=== PATIENT | female | born 1955 | race Caucasian/White ===

== ENCOUNTER 2016-08-09 18:58 | Inpatient (IN) | payer BC ==
--- NOTE | ~2016-08-09 | DS ---
Discharge Summary [facility] [address] [place]. [address] NAME: LISS YI : 57 STATUS : DIS IN PAT#: [id number] AGE: 61 ADM/REG DATE : 08/09/16 MR#: [id number] REPORT SERV DATE: 08/23/16 DICTATED BY: RENEA WELLINGTON DATE: 08/22/16 REPORT STATUS : Draft TRANSCRIBED BY: MODCatrachita DATE: 08/22/16 Data Collection from hospitalization DISCHARGE DIAGNOSES: 1. Small bowel obstruction. 2. Ulcerative colitis. 3. Hypertension. 4. Asthma. 5. Acute kidney injury - resolving. 6. Hypokalemia. CONSULTATIONS: None. PROCEDURES PERFORMED: 1. Laparoscopic extensive adhesiolysis with greater than two hours of adhesiolysis on 08/11/2016. 2. CT scan of the abdomen and pelvis without contrast on 08/09/2016. MEDICATIONS: ProAir two puffs via inhaler as needed, vitamin D 2500 units every morning, estradiol 0.0375 mg topically on and Sundays, Fenesin IR 400 mg every evening, Motrin 800 mg four times a day as needed, Prinivil 2.5 mg every morning, multivitamins with minerals one tablet every evening, Paxil 10 mg every morning, and vitamin E 400 units every morning. CONDITION AT DISCHARGE: Stable. DISPOSITION: The patient was discharged home on a regular diet with activities as instructed. She would follow up with me as instructed. HOSPITAL COURSE: This is a 61-year-old female who presented with a bowel obstruction. A CT scan of the abdomen and pelvis without contrast had been performed. She has had two and a half days of moderate intermittent dull abdominal pain, greater in the left lower quadrant with an episode of vomiting. She has not had a bowel movement in approximately two days. Her typical bowel habit is several bowel movements per day. She does have a history of ulcerative colitis, which is currently managed with diet. She was admitted to the hospital at this time for further evaluation and treatment. Upon admission, creatinine level was 2.22. CT scan findings were consistent with bowel obstruction. She was felt to have acute renal failure and urinary tract infection. IV hydration was started as well as antibiotics. NG tube was placed. It was felt that she may need possible surgical intervention if she fails to improve. The next day, she was resting comfortably. She was still not passing flatus. Abdominal x-ray showed dilated loops of air in the colon. She remained n.p.o. IV fluids were continued. On 08/11/2016, treatment options were discussed and it was elected to proceed with surgical intervention. She was taken to the operating room where she underwent the above-mentioned procedure. She tolerated this well, and there were no complications. On postop day #1, she had no new complaints. She appeared well. The NG tube was going to be removed. Discharge planning was performed. Pain control was appropriate. On 08/13/2016, she was feeling better. She Discharge Summary [facility] [address] [place]. [address] NAME: LISS YI : 57 STATUS : DIS IN PAT#: [id number] AGE: 61 ADM/REG DATE : 08/09/16 MR#: [id number] REPORT SERV DATE: 08/23/16 DICTATED BY: RENEA WELLINGTON DATE: 08/22/16 REPORT STATUS : Draft TRANSCRIBED BY: SUMANTH DATE: 08/22/16 was passing flatus and did have a bowel movement. She had no nausea or vomiting. She was tolerating oral intake. Discharge instructions were given. Due to her improved and stable condition, she was discharged home with the above-stated instruction. Information collected by: Violeta Xie I submit the above information as my discharge summary. KATHLEEN/SUMANTH Sonny Wellington M.D. / [id number] CC: Sonny Wellington M.D.
--- NOTE | ~2016-08-09 | HP ---
History And Physical [place] [id number] [facility] [place]. [address] NAME: LISS YI : 57 STATUS : ADM IN [facility]#: [id number] AGE: 61 ADM/REG DATE : 08/09/16 MR#: [id number] REPORT SERV DATE: 08/09/16 DICTATED BY: RENEA WELLINGTON DATE: 08/09/16 REPORT STATUS : Draft TRANSCRIBED BY: MODL DATE: 08/09/16 DATE OF ADMISSION: 08/09/2016 CHIEF COMPLAINT: Abdominal pain. HISTORY OF PRESENT ILLNESS: The patient presents with a two and half day history of moderate intermittent dull abdominal pain, greatest in the left lower quadrant with an episode of vomiting, and no bowel movement for approximately two days. Her typical bowel habit is several bowel movements a day with a history of ulcerative colitis which currently is managed with diet. Possible contributing factors are previous history of hysterectomy and followed by a small bowel resection and adhesiolysis for bowel obstruction in [address] Pearce. ALLERGIES: SULFA AND EPINEPHRINE. MEDICATIONS: Albuterol, cefuroxime, Calciferol, estradiol, guanfacine, ibuprofen, lisinopril, multivitamins, Paxil, and vitamin E. PAST MEDICAL HISTORY: Her medical illnesses include sinus problems, ulcerative colitis. PREVIOUS SURGERIES: As above. FAMILY HISTORY: Significant for hypertension. SOCIAL HISTORY: Significant for occasional ethanol use but no smoking. REVIEW OF SYSTEMS: A comprehensive review of systems was obtained, and she generally has been in good health, though she does have sinus problems and is on antibiotic at this time for sinus problem and has a mass which she is supposed to have a CT scan for today but did not get that. She denies chest pain or shortness of breath, heart or lung problems. She denies other GI problems other than already mentioned. She denies kidney problems. She denies musculoskeletal problems. She denies endocrine problems, bleeding diathesis, or history of blood clot, and her comprehensive review is otherwise negative according to her. PHYSICAL EXAMINATION: VITAL SIGNS: Blood pressure 145/75, temperature 97.9, respiratory rate 16. GENERAL: She is alert and well appearing. She has mildly dry mucous membranes. No scleral icterus. There is no JVD, thyromegaly, cervical adenopathy, or carotid bruits. There is no use of accessory muscles of breathing. CHEST: Clear. HEART: Regular rhythm and rate without murmurs. ABDOMEN: Soft, with tenderness in left lower quadrant. EXTREMITIES: No cyanosis, clubbing, or edema. SKIN: Has multiple actinic changes. Of note, there is no ventral hernia identified. History And Physical [address] [place]. [address] NAME: LISS YI : 57 STATUS : ADM IN [facility]#: [id number] AGE: 61 ADM/REG DATE : 08/09/16 MR#: [id number] REPORT SERV DATE: 08/09/16 DICTATED BY: RENEA WELLINGTON DATE: 08/09/16 REPORT STATUS : Draft TRANSCRIBED BY: MODL DATE: 08/09/16 LABORATORY DATA: Includes creatinine of 2.22, BUN 26, hemoglobin of 14.4, white count of 8.1. Urinalysis revealed 26 white blood cells. I reviewed the CT scan and findings were consistent with bowel obstruction both on the report and also by my visualization. IMPRESSION: Small bowel obstruction with dehydration and acute renal failure and urinary tract infection. PLAN: Plan will be for IV hydration, antibiotics, nasogastric decompression with possible surgical intervention if she fails to improve. I think she would be best served by rehydrating and resuscitating her prior to surgical intervention and that she does not have an acute abdomen and she appears to be dehydrated and may be able to get through this without surgical intervention. TIFFANIE/SUMANTH Sonny Wellington M.D. / [id number] CC: Sonny Wellington M.D.
--- NOTE | ~2016-08-09 | OP ---
Record Of Operation [facility] [address] [place]. [address] NAME: LISS ALCOCER : 57 STATUS : ADM IN [facility]#: [id number] AGE: 61 ADM/REG DATE : 08/09/16 MR#: [id number] REPORT SERV DATE: 08/11/16 DICTATED BY: RENEA WELLINGTON DATE: 08/11/16 REPORT STATUS : Draft TRANSCRIBED BY: MODL DATE: 08/11/16 DATE OF PROCEDURE: 08/11/2016 PREOPERATIVE DIAGNOSIS: Small bowel obstruction. POSTOPERATIVE DIAGNOSIS: Small bowel obstruction. PROCEDURE: Laparoscopic extensive adhesiolysis with greater than 2 hours of adhesiolysis. SURGEON: Sonny Wellington M.D. RESIDENT: Nenita Velez MD ANESTHESIA: General. ESTIMATED BLOOD LOSS: Less than 30 mL. INDICATION: Ms. Alcocer is a 61-year-old female with bowel obstruction. It failed to resolve with conservative management. Laparoscopic possible open resection was offered to her. The risks including bleeding, leak of the bowel, need for anastomosis, DVT, anesthetic complications, recuperation, possible need for open operation among others were discussed with her and she agreed to proceed. DESCRIPTION OF PROCEDURE: The patient was taken to the operating room and placed in a supine position. General anesthesia was induced. The abdomen was prepped and draped and a small incision was made in the umbilicus. A Charlene technique was utilized to place a 5 mm trocar. There were multiple adhesions and two trocars which were both 5 mm placed on the left and also on the right, and adhesions were taken down from the anterior abdominal cavity and then there were multiple adhesions of the small bowel in the pelvis and it was very difficult because of the nature of the adhesions. However, with meticulous dissection, the bowel was freed up and the terminal ileum was identified. It was decompressed and we dissected it up toward an area where there was an anastomosis and there were adhesions adjacent to the anastomosis which had resulted in the obstruction and these were divided, and the bowel was run and we saw no other evidence for obstruction. Therefore, the pneumoperitoneum was evacuated and the skin incisions closed with absorbable suture. Dressings applied. She tolerated the procedure well. TIFFANIE/SUMANTH Sonny Wellington M.D. / [id number] Record Of Operation [place] [address] [place]. [address] NAME: LISS ALCOCER : 57 STATUS : ADM IN PAT#: [id number] AGE: 61 ADM/REG DATE : 08/09/16 MR#: [id number] REPORT SERV DATE: 08/11/16 DICTATED BY: RENEA WELLINGTON DATE: 08/11/16 REPORT STATUS : Draft TRANSCRIBED BY: MODL DATE: 08/11/16 CC: Sonny Wellington M.D.
[2016-08-09 16:55] LABS: BASOPHILS 0.4 %; BASOPHILS ABSOLUTE 0.03 10/3/uL (0.0-0.16); EOSINOPHILS 1.5 %; EOSINOPHILS ABSOLUTE 0.12 10/3/uL (0.0-0.53); ER CBC TAT 0 Hrs 03 Mins; HEMATOCRIT 42.4 % (36.0-48.0); HEMOGLOBIN 14.4 g/dL (12.0-16.0); IMMATURE GRANULOCYTES 0.1 %; IMMATURE GRANULOCYTES ABSOLUTE 0.01 10/3/uL (0.0-0.11); LYMPHOCYTES 16.2 %; LYMPHOCYTES ABSOLUTE 1.31 10/3/uL (0.67-4.30); MEAN CORPUSCULAR HEMOGLOB 31.6 pg (26.0-34.0); MEAN CORPUSCULAR VOLUME 93.2 fL (80-100); MEAN PLATELET VOLUME 9.4 fL (9.2-13.0); MONOCYTES 9.4 %; MONOCYTES ABSOLUTE 0.76 10/3/uL (0.21-1.20); NEUTROPHILS 72.4 %; NEUTROPHILS ABSOLUTE 5.86 10/3/uL (2.02-8.40); PLATELET COUNT 411 10/3/uL (150-400); RBC DISTRIBUTION WIDTH 13.4 % (12.0-16.0); RED CELL COUNT 4.55 10/6/uL (4.0-5.6); WHITE BLOOD CELLS 8.1 10/3/uL (4.5-10.5)
[2016-08-09 16:57] LABS: MANUAL DIFF NO %
[2016-08-09 17:03] LABS: ASCORBIC ACID (UR NOT ORDER) NEG (NEG); BILIRUBIN, URINE NEGATIVE (NEG); ER URINALYSIS TAT 0 Hrs 11 Mins; KETONE, URINE TRACE MG/DL (NEG); LEUKOCYTE ESTERASE(NOT OR TRACE (NEG); NITRITE (URINE) NEG (NEG); WBC (NOT ORDERED) (RFLEX) 26 (0-5)
[2016-08-09 17:08] LABS: A/G RATIO 1.2 (0.7-1.9); ALBUMIN 4.5 G/DL (3.5-5.0); ALKALINE PHOSPHATASE 57 U/L (45-117); POTASSIUM, SERUM 3.8 MMOL/L (3.5-5.3); SGOT(AST) 26 U/L (5-40); SGPT(ALT) 25 U/L (5-65); SODIUM, SERUM 133 MMOL/L (135-148); TOTAL BILIRUBIN 0.5 MG/DL (0-1.2)
[2016-08-09 17:09] LABS: BUN (BLOOD UREA NITROGEN) 26 MG/DL (6-23); CALCIUM, SERUM 10.1 MG/DL (8.5-10.4); CHLORIDE, SERUM 87 MMOL/L (96-112); CO2 (CARBON DIOXIDE) 36 MMOL/L (24-34); CREATININE 2.22 MG/DL (0.55-1.02); GFR AFRICAN AMERICAN 27 ML/MIN (>=60); GFR NON AFRICAN AMERICAN 23 ML/MIN (>=60); GLOBULIN 3.9 G/DL (2.5-4.1); GLUCOSE, SERUM 93 MG/DL (60-99); TOTAL PROTEIN 8.4 G/DL (6.0-8.5)
[~2016-08-09 18:58] MED LIST: FLAG500TAB PO; LEVAQUIN5T PO; LORTAB 5 PO; PAX10 PO; PRIN5 PO
[2016-08-09] MEDS ORDERED: PAX10 PO (19:16)
[2016-08-09] MEDS ORDERED: PRIN2.5 PO (19:16)
[2016-08-09] MEDS ORDERED: MULTIVIT/MIN PO (19:17)
[2016-08-09] MEDS ORDERED: VITAMIN D1000 UNI1 PO (19:17)
[2016-08-09] MEDS ORDERED: VITE PO (19:17)
[2016-08-09] MEDS ORDERED: FENESIN IR400 MG PO (19:17)
[2016-08-09] MEDS ORDERED: CEFT5 PO (19:18)
[2016-08-09] MEDS ORDERED: PROAIR HFA INH (19:18)
[2016-08-09] MEDS ORDERED: VIVELLE SY0.0375 MG/ TOP (19:18)
[2016-08-09] MEDS ORDERED: IBU800 PO (19:19)
[2016-08-10 05:57] LABS: CHLORIDE, SERUM 92 MMOL/L (96-112); CO2 (CARBON DIOXIDE) 35 MMOL/L (24-34); POTASSIUM, SERUM 3.2 MMOL/L (3.5-5.3); SODIUM, SERUM 135 MMOL/L (135-148)
[2016-08-10 05:59] LABS: BUN (BLOOD UREA NITROGEN) 20 MG/DL (6-23); CALCIUM, SERUM 8.5 MG/DL (8.5-10.4); CREATININE 1.57 MG/DL (0.55-1.02); GFR AFRICAN AMERICAN 41 ML/MIN (>=60); GFR NON AFRICAN AMERICAN 35 ML/MIN (>=60); GLUCOSE, SERUM 122 MG/DL (60-99)
[2016-08-10 07:07] LABS: BASOPHILS 0.2 %; BASOPHILS ABSOLUTE 0.01 10/3/uL (0.0-0.16); EOSINOPHILS 1.4 %; EOSINOPHILS ABSOLUTE 0.09 10/3/uL (0.0-0.53); HEMATOCRIT 34.4 % (36.0-48.0); HEMOGLOBIN 11.6 g/dL (12.0-16.0); IMMATURE GRANULOCYTES 0.2 %; IMMATURE GRANULOCYTES ABSOLUTE 0.01 10/3/uL (0.0-0.11); LYMPHOCYTES 16.3 %; LYMPHOCYTES ABSOLUTE 1.04 10/3/uL (0.67-4.30); MANUAL DIFF NO %; MEAN CORPUS HGB CONC 33.7 g/dL (32.0-36.0); MEAN CORPUSCULAR HEMOGLOB 31.5 pg (26.0-34.0); MEAN CORPUSCULAR VOLUME 93.5 fL (80-100); MEAN PLATELET VOLUME 9.7 fL (9.2-13.0); MONOCYTES 10.8 %; MONOCYTES ABSOLUTE 0.69 10/3/uL (0.21-1.20); NEUTROPHILS 71.1 %; NEUTROPHILS ABSOLUTE 4.54 10/3/uL (2.02-8.40); PLATELET COUNT 364 10/3/uL (150-400); RBC DISTRIBUTION WIDTH 13.2 % (12.0-16.0); RED CELL COUNT 3.68 10/6/uL (4.0-5.6); WHITE BLOOD CELLS 6.4 10/3/uL (4.5-10.5)
[2016-08-11 07:10] LABS: BASOPHILS 0.2 %; BASOPHILS ABSOLUTE 0.02 10/3/uL (0.0-0.16); EOSINOPHILS 2.8 %; EOSINOPHILS ABSOLUTE 0.26 10/3/uL (0.0-0.53); HEMATOCRIT 35.1 % (36.0-48.0); HEMOGLOBIN 11.6 g/dL (12.0-16.0); IMMATURE GRANULOCYTES 0.1 %; IMMATURE GRANULOCYTES ABSOLUTE 0.01 10/3/uL (0.0-0.11); LYMPHOCYTES 7.5 %; LYMPHOCYTES ABSOLUTE 0.69 10/3/uL (0.67-4.30); MEAN CORPUSCULAR HEMOGLOB 31.5 pg (26.0-34.0); MEAN CORPUSCULAR VOLUME 95.4 fL (80-100); MEAN PLATELET VOLUME 9.2 fL (9.2-13.0); MONOCYTES 8.9 %; MONOCYTES ABSOLUTE 0.82 10/3/uL (0.21-1.20); NEUTROPHILS 80.5 %; NEUTROPHILS ABSOLUTE 7.41 10/3/uL (2.02-8.40); PLATELET COUNT 330 10/3/uL (150-400); RBC DISTRIBUTION WIDTH 13.3 % (12.0-16.0); RED CELL COUNT 3.68 10/6/uL (4.0-5.6)
[2016-08-11 07:15] LABS: MANUAL DIFF NO %; WHITE BLOOD CELLS 9.2 10/3/uL (4.5-10.5)
[2016-08-11 07:19] LABS: CALCIUM, SERUM 8.2 MG/DL (8.5-10.4); CO2 (CARBON DIOXIDE) 31 MMOL/L (24-34); GLUCOSE, SERUM 137 MG/DL (60-99); PHOSPHORUS, SERUM 2.5 MG/DL (2.5-4.5); POTASSIUM, SERUM 3.4 MMOL/L (3.5-5.3)
[2016-08-11 07:20] LABS: ALBUMIN 2.6 G/DL (3.5-5.0); BUN (BLOOD UREA NITROGEN) 6 MG/DL (6-23); CHLORIDE, SERUM 104 MMOL/L (96-112); CREATININE 0.85 MG/DL (0.55-1.02); GFR AFRICAN AMERICAN 86 ML/MIN (>=60); GFR NON AFRICAN AMERICAN 74 ML/MIN (>=60); SODIUM, SERUM 143 MMOL/L (135-148)
[2016-08-12 08:55] LABS: BASOPHILS 0.1 %; BASOPHILS ABSOLUTE 0.01 10/3/uL (0.0-0.16); EOSINOPHILS 1.8 %; EOSINOPHILS ABSOLUTE 0.12 10/3/uL (0.0-0.53); HEMATOCRIT 35.3 % (36.0-48.0); HEMOGLOBIN 11.5 g/dL (12.0-16.0); IMMATURE GRANULOCYTES 0.3 %; IMMATURE GRANULOCYTES ABSOLUTE 0.02 10/3/uL (0.0-0.11); LYMPHOCYTES 9.6 %; LYMPHOCYTES ABSOLUTE 0.66 10/3/uL (0.67-4.30); MEAN CORPUS HGB CONC 32.6 g/dL (32.0-36.0); MEAN CORPUSCULAR HEMOGLOB 31.5 pg (26.0-34.0); MEAN CORPUSCULAR VOLUME 96.7 fL (80-100); MEAN PLATELET VOLUME 9.4 fL (9.2-13.0); MONOCYTES 9.5 %; MONOCYTES ABSOLUTE 0.65 10/3/uL (0.21-1.20); NEUTROPHILS 78.7 %; NEUTROPHILS ABSOLUTE 5.39 10/3/uL (2.02-8.40); PLATELET COUNT 323 10/3/uL (150-400); RBC DISTRIBUTION WIDTH 13.3 % (12.0-16.0); RED CELL COUNT 3.65 10/6/uL (4.0-5.6); WHITE BLOOD CELLS 6.9 10/3/uL (4.5-10.5)
[2016-08-12 09:00] LABS: MANUAL DIFF NO %
[2016-08-12 09:05] LABS: BUN (BLOOD UREA NITROGEN) 3 MG/DL (6-23); CALCIUM, SERUM 8.1 MG/DL (8.5-10.4); CHLORIDE, SERUM 111 MMOL/L (96-112); CO2 (CARBON DIOXIDE) 27 MMOL/L (24-34); GFR AFRICAN AMERICAN 93 ML/MIN (>=60); GFR NON AFRICAN AMERICAN 80 ML/MIN (>=60); GLUCOSE, SERUM 114 MG/DL (60-99); POTASSIUM, SERUM 4.4 MMOL/L (3.5-5.3); SODIUM, SERUM 144 MMOL/L (135-148)
== END 2016-08-13 10:45 | disposition home or self-care (01) | DRG 336 ==
LOC: ER 18:58 → 4EA 20:17
PROVIDERS: Colon & Rectal Surgery; Emergency Medicine
PROC: 0DN84ZZ Release Small Intestine, Percutaneous Endoscopic Approach (ICD-10-PCS; principal; 2016-08-09)
DX: K56.60 Unspecified intestinal obstruction (principal); N17.9 Acute kidney failure, unspecified; I10 Essential (primary) hypertension; J45.909 Unspecified asthma, uncomplicated
CPT/HCPCS: 74000; 74020; 74176; 80048; 80053; 80069; 81001; 83690; 85025; 87086; 99285; J0330; J0690; J1956; J2250; J2405; J2710; J3010